=== PATIENT | female | born 1990 | race Two or more races ===

== ENCOUNTER 2016-11-25 23:45 | Inpatient (IN) | payer MEDICAID ==
[2016-11-26 00:12] VITALS: BMI 27.9
[2016-11-26] MEDS ORDERED: LACTATED RINGERS 1,000 ML IV PRN (00:18)
[2016-11-26] MEDS ORDERED: OXYTOCIN IN LR 500 ML IV ONE (00:18)
[2016-11-26] MEDS ORDERED: OXYTOCIN 10 UNITS/ML VIAL ONE (00:20)
[2016-11-26] MEDS ORDERED: MINERAL OIL 25 ML BOT ONE (00:21)
[2016-11-26] MEDS ORDERED: LIDOCAINE Viscous 2% 15 ML UDCUP ONE (00:21)
[2016-11-26] MEDS ORDERED: LIDOCAINE 1% (PRES FREE) 30 ML VIAL ONE (00:21)
[2016-11-26] MEDS ORDERED: PUMP TUBING ONE (00:21)
[2016-11-26] MEDS ORDERED: IV START KIT ONE (00:21)
[2016-11-26 00:52] LABS: HEMATOCRIT 38.6 % (37.0-47.0); HEMOGLOBIN 12.9 gm/l (12.0-16.0); MEAN CORPUSCULAR HEMOGLOBIN 27.7 pg (27.0-31.0); MEAN CORPUSCULAR HGB CONC 33.4 g/dl (33.0-37.0); RED CELL DISTRIBUTION WIDTH 13.2 % (11.5-14.5)
--- NOTE | 2016-11-26 01:02 | PCMAN ---
OB Admission Note - History : 2 Term: 1 : 0 Abortions (S&E): 0 Livin Gestational Age (weeks): 39 Days (#/7): 2 Admit Cervical Dilation:: 8 Admit Cervical Effacement (%):: 100 Admit Station:: 0 Admit Presentaton:: vertex Membrane Status: Bulging Labor Onset (Date): 11/25/16 Labor Onset (Time): 22:00 Contractions: Yes Contraction Frequency:: q 3 min Heart Rate:: 140 Status:: cat 1 EFW:: 7 lbs Summary of Course:: uncomplicated, care at [facility], was supposed to deliver with Midwives, first appt not until next Wednesday. EDC 12/01/16 by 15 week US, cw 20 week US Ob HX: 05/15 40 week , female [facility] pmh: none PSH: none meds: none SH: no tobacco, etoh, or drugs labs: ASCUS pap HPV HR, needs PP colpo, A pos, antibody neg, hgb 12.9, Rubella Imm, RPR NR, Hep B NR, HIV neg, urine culture neg Gc/CT neg one hour GCT 112, repeat hgb 11.2 GBS not in records, calling [facility] US: normal anatomy, posterior fundal placenta - Labs Blood Type: A (+) positive Hct/Hgb:: 11.2 Rubella Status: Immune GBS Status: Unknown Abnormal Labs: None - Physical Exam Psych/Mental Status: Mood/Affect Appropriate Neurological: Alert Lungs: Clear to Auscultation Bilaterally Cardiovascular: Regular Rate and Rhythm Genitourinary: Normal Female Genitalia Rectal Exam: Deferred Skin: Normal Color - Problems (1) Active labor at term Status: Acute Code: [id number] Assessment/Plan: expectant management, anticipate FWB overall reassuring, cat I GBS neg
[2016-11-26] MEDS ORDERED: LIDOCAINE 1% 2 ML VIAL PF ONE (01:06)
--- NOTE | 2016-11-26 01:06 | PCMDEL ---
Delivery Note - Labor 1st stage (hr/min):: 2 hours 2nd stage (hr/min):: 4 min 3rd stage (hr/min):: 4 min Total (hr/min):: 2 hours 8 min Pushed (hr/min):: 4 min - Delivery Delivery (Date): 11/26/16 Delivery (Time): 00:49 Infant Gender: Male Presentation: Cephalic Umbilical Cord: 3 Vessel Delayed Cord Clamping:: > 3 min 1 Minute Total: 9 5 Minute Total: 9 Placenta:: normal EBL:: 200 ml Perineum:: intact, small vaginal 1 degree lac Suture:: 3.0 vicryl Anesthesia/Meds:: 1% lidocaine Length ROM:: 4 min Comments:: vigorous male, thin mec, uncomplicated
[2016-11-26 01:09] LABS: AMPHETAMINES/METHAMPHETAMINES NEGATIVE (NEGATIVE); COCAINE NEGATIVE (NEGATIVE); MARIJUANA NEGATIVE (NEGATIVE); METHADONE NEGATIVE (NEGATIVE); OPIATES NEGATIVE (NEGATIVE); TRICYCLIC ANTIDEPRESSANTS NEGATIVE (NEGATIVE)
[2016-11-26] MEDS ORDERED: LIDOCAINE 1% (PRES FREE) 30 ML VIAL SUB-Q ONE (01:45)
[2016-11-26] MEDS ORDERED: HYDROCODONE/ACETAMINOPHEN 5/325MG TABLET PO PRN (01:49)
[2016-11-26] MEDS ORDERED: LANOLIN 50 APPLIC/7G TUBE TP PRN (01:49)
[2016-11-26] MEDS ORDERED: BENZOCAINE/MENTHOL 60 APPLIC/BOT TP PRN (01:49)
[2016-11-26] MEDS: IBUPROFEN 800 MG TABLET PO PRN ×2 (10:45→16:46)
[2016-11-27] MEDS: IBUPROFEN 800 MG TABLET PO PRN ×2 (01:34→11:19)
[2016-11-27 06:41] LABS: HEMATOCRIT 32.6 % (37.0-47.0); HEMOGLOBIN 10.8 gm/l (12.0-16.0)
[2016-11-27 08:24] VITALS: BP 98/55
--- NOTE | 2016-11-27 08:55 | PDOC39B ---
Hospital Course: ADMIT DATE: 11/26/16 DISCHARGE DATE: 11/27/16 ADMISSION DIAGNOSES: Active labor at term PROCEDURES: Normal Spontaneous Vaginal Delivery HISTORY OF PRESENT ILLNESS/HOSPITAL COURSE: 26 year old G2 T1 L1 at 39 weeks 2 days presented in active labor and proceeded to have a normal spontaneous vaginal delivery. By day of discharge the patient is ambulating, eating, voiding, and passing flatus without difficulty. Pain is controlled and lochia is appropriate. She is . - Physical Exam Vital Signs: Temp Pulse Resp BP Pulse Ox 98.2 F 75 18 98/55 11/27/16 08:22 11/27/16 08:22 11/27/16 08:22 11/27/16 08:22 General: Afebrile, No Acute Distress Neurological: Alert, Oriented x 4 Lungs: Clear to Auscultation Bilaterally Cardiovascular: Regular Rate and Rhythm Fundus: Firm, Midline Extremities: Full ROM, No Edema Skin: Normal Color, Warm, Dry, Intact, No Rash - Discharge Diagnosis (1) Normal spontaneous vaginal delivery Status: Acute Assessment/Plan: PPD 1. Nl exam and vitals. +BF. - Discharge Plan Condition: Good Disposition: Home Prescriptions: Docusate Sodium [COLACE 100 MG CAPSULE (SHF)] 100 mg PO BID PRN #60 cap PRN Reason: Constipation Ibuprofen [Motrin] 800 mg PO TID PRN #30 tablet PRN Reason: Pain Follow-Up: [facility] [Provider Group] - In 6 weeks
== END 2016-11-27 12:00 | disposition home or self-care (01) | DRG 775 ==
LOC: FBCOUT 23:45 → FBC 23:45 → EDBD 23:45 → FBC 11-26 00:16 → FBCOUT 11-26 00:16
PROVIDERS: ADMIT Family Medicine; ATTEND Family Medicine
PROC: 0HQ9XZZ Repair Perineum Skin, External Approach (ICD-10-PCS; principal; 2016-11-26)
PROC: 10E0XZZ Delivery of Products of Conception, External Approach (ICD-10-PCS; 2016-11-26)
DX: O71.4 Obstetric high vaginal laceration alone (principal); Z3A.39 39 weeks gestation of pregnancy; Z37.0 Single live birth